=== PATIENT | female | born 2000 | race Caucasian/White ===

== ENCOUNTER 2025-03-16 12:41 | Emergency (ER) | payer BC, MEDICAID ==
[~2025-03-16] VITALS: Ht 142.2 cm; Wt 53.2 kg
[2025-03-16] MEDS: ONDANSETRON 4MG ORAL DISINTEGRATING TAB PO ONE (16:06)
[2025-03-16 17:01] LABS: KETONE, URINE AUTO RFX NEGATIVE (NEGATIVE); LEUKOCYTE ESTERASE UR AUTO RFX TRACE (NEGATIVE); MUCUS, URINE RFX SMALL (NEGATIVE); NITRITE, URINE AUTO RFX NEGATIVE (NEGATIVE); RBC, URINE AUTO RFX 2 /HPF (0-3); SQUAM EPITHELIAL CELL UR AURFX 8 /HPF (0-6); WBC, URINE AUTO RFX 3 /HPF (0-3)
[2025-03-16 17:22] VITALS: BP 115/69; TEMP 97.5; O2SAT 100
== END 2025-03-16 17:24 | disposition home or self-care (01) ==
LOC: M ED 12:41
DX: Z32.01 Encounter for pregnancy test, result positive (principal); Z3A.10 10 weeks gestation of pregnancy; Z91.040 Latex allergy status; Z88.1 Allergy status to other antibiotic agents